=== PATIENT | male | born 1990 | race Caucasian/White ===

== ENCOUNTER 2017-02-08 13:30 | Day surgery (SDC) | payer BC ==
[~2017-02-08] VITALS: Ht 190.5 cm; Wt 126.1 kg
[~2017-02-08 13:30] MED LIST: ESOM40CA PO; METO5TAB58 PO; RANI150T5 PO
[2017-02-08 14:18] VITALS: Ht 190.5 cm; Wt 126.1 kg
[2017-02-08 14:19] VITALS: BP 129/74; PULSE 87; RESP 16
[2017-02-08] MEDS ORDERED: ROCURONIUM 50 MG INJ ONE (15:13)
[2017-02-08] MEDS ORDERED: PROPOFOL 20 ML ONE (15:13)
[2017-02-08] MEDS ORDERED: LIDOCAINE 1% (MDV) 20 ML INJ ONE (15:18)
[2017-02-08] MEDS ORDERED: BACITRACIN/POLYMYXIN 28.35 GM OINT TOP ONE (15:36)
[2017-02-08] MEDS ORDERED: COCAINE 4% 4 ML TOP ONE (15:36)
[2017-02-08] MEDS ORDERED: EPINEPHrine 0.1 MG/ML SYG ONE (15:37)
[2017-02-08] MEDS ORDERED: EPINEPHrine 1 MG/ML 30 ML INJ ONE (15:37)
[2017-02-08] MEDS ORDERED: LIDOCAINE 0.5%/EPI (MDV) 50 ML INJ ONE (15:41)
== END 2017-02-08 18:05 | disposition home or self-care (01) ==
LOC: SDS 13:30
PROVIDERS: ATTEND Otolaryngology
DX: J34.2 Deviated nasal septum (principal); Z53.9 Procedure and treatment not carried out, unspecified reason
CPT/HCPCS: Z7610 ×4; J0171

== ENCOUNTER 2017-02-22 12:35 | Day surgery (SDC) | payer BC ==
[2017-02-21 12:41] VITALS: Ht 190.5 cm; Wt 128.0 kg
[~2017-02-22] VITALS: Ht 190.5 cm; Wt 128.0 kg
[2017-02-22] VITALS (11 sets, daily range): BP systolic 122–146; BP diastolic 70–82; PULSE 72–100; RESP 10–19
[~2017-02-22 12:35] MED LIST changes: +CEFAZOLIN 1 GM/50 ML (PMX) 50 ML IVPB SCH; +DEXAMETHASONE 10 MG/ML 1 ML INJ IV SCH; -ESOM40CA PO; -METO5TAB58 PO; -RANI150T5 PO
[2017-02-22] MEDS ORDERED: DEXAMETHASONE 4 MG/ML 1 ML INJ IV SCH (14:00)
[2017-02-22] MEDS ORDERED: RANI150T9 PO (14:24)
[2017-02-22] MEDS ORDERED: MIDAZOLAM 1 MG/ML 2 ML INJ ONE (15:27)
[2017-02-22] MEDS ORDERED: DIPHENHYDRAMINE 50 MG INJ IV PRN (16:00)
[2017-02-22] MEDS ORDERED: EPHEDrine SULFATE 50 MG/5 ML SYG IV PRN (16:00)
[2017-02-22] MEDS ORDERED: METOCLOPRAMIDE 10 MG INJ IV PRN (16:00)
[2017-02-22] MEDS ORDERED: HYDROmorphONE (0.2 MG/ML) 10ML SYG IV PRN ×2 (16:00)
[2017-02-22] MEDS ORDERED: LABETALOL HCL 20MG INJ IV PRN (16:00)
[2017-02-22] MEDS ORDERED: ONDANSETRON 4 MG INJ IV PRN (16:00)
[2017-02-22] MEDS ORDERED: morphine (1 MG/ML) 10ML SYRINGE IV PRN ×3 (16:00)
[2017-02-22] MEDS ORDERED: OXYCODONE/ACETAMINOPHEN (5/325) TAB PO PRN ×2 (16:00)
[2017-02-22] MEDS ORDERED: MEPERIDINE 25 MG INJ IV PRN (16:00)
[2017-02-22] MEDS ORDERED: GLYCOPYRROLATE 0.4 MG INJ ONE ×3 (17:27→19:47)
[2017-02-22] MEDS ORDERED: PROPOFOL 20 ML ONE (17:27)
[2017-02-22] MEDS ORDERED: LIDOCAINE 2% (SDV) 5 ML INJ ONE (17:27)
[2017-02-22] MEDS ORDERED: SUCCINYLCHOLINE CHLORIDE 100 MG/5 ML SYG IV ONE (17:27)
[2017-02-22] MEDS ORDERED: NEOSTIGMINE 3 MG/3 ML SYRINGE ONE ×2 (17:27→19:47)
[2017-02-22] MEDS ORDERED: MEPERIDINE 100 MG INJ ONE (17:27)
[2017-02-22] MEDS ORDERED: ROCURONIUM 50 MG INJ ONE (17:27)
[2017-02-22] MEDS ORDERED: LIDOCAINE 0.5%/EPI (MDV) 50 ML INJ ONE (18:02)
[2017-02-22] MEDS ORDERED: COCAINE 4% 4 ML TOP ONE (18:03)
[2017-02-22] MEDS ORDERED: LIDOCAINE 2%/EPI (MDV) 20ML INJ ONE (18:03)
[2017-02-22] MEDS ORDERED: BACITRACIN 0.9 GM OINT ONE (18:04)
[2017-02-22] MEDS ORDERED: OXYMETAZOLINE 0.05% 15 ML NAS SPRAY NASAL ONE (18:09)
[2017-02-22] MEDS ORDERED: CEFAZOLIN 1 GM INJ ONE (18:18)
[2017-02-22] MEDS ORDERED: EPINEPHrine 1 MG INJ ONE (19:05)
[2017-02-22] MEDS ORDERED: hydrALAzine 20 MG INJ ONE (19:22)
--- NOTE | 2017-02-22 19:54 | HPN ---
Date/Time of Note Date/Time of Note DATE: 02/22/17 TIME: 19:54 Interval H&P Admission Note Pt. seen H&P reviewed: No system changes MARY MOORE MD February 22, 2017 19:54
--- NOTE | 2017-02-22 19:59 | OPR ---
Date/Time of Note Date/Time of Note DATE: 02/22/17 TIME: 19:55 Operative Report Procedure Date: February 22, 2017 Preoperative Diagnosis Deviated nasal septum, chronic sinusitis, nasal congestion. Postoperative Diagnosis Same Operation Performed Image guided bilateral endoscopic frontal sinusotimies, maxillary antrostomies, total ethmoidectomies, sphenoid sinusotomies. Septoplasty. Submucous resection of inferior turbinates. Surgeon: MARY MOORE MD Anesthesia: general Estimated Blood Loss: 10 - 50 ml's Complications: None Pt Condition Post Procedure: stable Disposition: PACU Indications Nasal congestion, chronic sinusitis. Operative\Procedure Findings Symmetric nasal mucosal edema. DNS right caudal, left to MM posteriorly. Procedure Description Description of procedure:The patient was identified in the holding area. We had a discussion to confirm understanding of all indications risks benefits alternatives and postoperative care associated with the operation. The patient signed informed consent was taken to the operating room. The patient was laid supine on the operating room table and anesthesia was provided in the following manner: GETA. The face was draped in sterile fashion and the nose was packed with 4% cocaine pledgets. The uncinate process was infiltrated with 0.5 cc of 1 % lidocaine with epinephrine on each side. Navigation with G-mode system was initiated and used during the entire case. 0 endoscopy was performed of all nasal turbinates and meati. This revealed the findings described above. The procedure began on the right side under endoscopic guidance. The sickle knife and upbiting [place]akesley were used to resect the uncinate process in an inferior to superior fashion until the area of the frontal sinus outflow tract was reached. Frontal sinusotomy: A curved curet was used to remove the bony elements of the Ager Nasi cell. Next, with a 45 camera, the frontal sinus outflow tract was explored and any abnormal mucosa was resected. Care was taken not to cause too much mucosal disruption in this area in order to avoid scarring and stenosis. The tract was dilated with a frontal sinus balloon. Maxillary antrostomy: Once the frontal sinus was addressed, the maxillary sinus ostium was identified and entered with the curved probe. It was widened anteriorly and inferiorly to complete the maxillary antrostomy. No intrasinus mass or polyp was seen. Ethmoidectomy: Next, the zero degree endoscope was again used to visualize the middle meatus. Anterior and posterior ethmoid air cells were resected in an inferior to superior fashion sparing the lamina papyracea and the skull base. All excess mucosa and polypoid tissue were removed with an upbiting forceps. Sphenoid sinusotomy: The anterior face of the sphenoid sinus was identified with the zero degree endoscopy and entered inferiorly and medially with a seeker. The punch was used to widen this inferomedially to complete the sphenoid sinusotomy. At this point, all bony fragments were removed and a large Nasopore was placed into the ethmoidectomy defect. The contralateral side was at this point addressed in the same sequence dictated above. Frontal sinusotomy, total ethmoidectomy, sphenoid sinusotomy and maxillary antrostomy proceeded in the exact same sequences as the contralateral side. At completion, this side was also packed with a Nasopore pack and bilateral hemostasis was ensured with a final nasal endoscopy. A left sided H[place]ernia incision was made and submucoperichondreal flaps were raised. The bony cartilaginous junction of the septum was identified and entered. A deviated segments of bone and cartilage were isolated. A double- action scissor was used to transect the bony deviated segment of the skull base after which a Augustine forcep was used to resect deviated segment of bone and cartilage. Care was taken to avoid excess cartilaginous resection. The flaps were returned to normal position and anterior rhinoscopy reveals midline septum. At this point the right inferior turbinate was medialized with a [place] elevator. The Coblation wand on a setting of 6 was used to enter the turbinate in the inferior medial submucosal compartment. 10 seconds of Coblation were performed at the 3rd 2nd and 1st beck after which the turbinate was crushed laterally into the lateral nasal wall with a Kraft elevator. The contralateral turbinate was addressed in similar fashion to complete the bilateral submucous resection and lateral fracturing of the inferior turbinates. 40 fast-absorbing gut whip stitch was performed. A Merocel pack was placed on each side. The patient was awakened, extubated and taken to the PACU in stable condition. Complications: None. MARY MOORE MD February 22, 2017 19:59
[2017-02-22] MEDS ORDERED: HYDROCODONE/APAP (5/325) TAB PO PRN (20:00)
[2017-02-22] MEDS: HYDROmorphONE (0.2 MG/ML) 10ML SYG IV PRN ×5 (20:14→20:40)
== END 2017-02-22 21:33 | disposition home or self-care (01) ==
LOC: SDS 12:35
PROVIDERS: ATTEND Otolaryngology
DX: J34.2 Deviated nasal septum (principal); J32.9 Chronic sinusitis, unspecified; E66.9 Obesity, unspecified; Z68.35 Body mass index [BMI] 35.0-35.9, adult
CPT/HCPCS: 31255; 31256; 31276; J0171; J0360; J0690; J1170; J2175; J2250; J2405; J2710; J7999; Z7512; Z7610

== ENCOUNTER 2017-02-27 22:53 | Emergency (ER) | payer BC ==
[~2017-02-27] VITALS: Ht 190.5 cm; Wt 125.0 kg
[~2017-02-27 22:53] MED LIST changes: -CEFAZOLIN 1 GM/50 ML (PMX) 50 ML IVPB SCH; -DEXAMETHASONE 10 MG/ML 1 ML INJ IV SCH; +RANI150T9 PO
[2017-02-27 22:57] VITALS: Ht 190.5 cm; Wt 125.0 kg
[2017-02-28] MEDS ORDERED: HYDR-902 PO
[2017-02-28] MEDS ORDERED: HYDROCODONE/APAP (10/325) TAB PO ONE
--- NOTE | 2017-02-28 00:34 | ERD ---
ER Documentation Chief Complaint Date/Time DATE: 02/28/17 TIME: 00:30 Chief Complaint had septoplasty on tuesday, is having r side face pain, ran out of medicait HPI 19-year-old male presents to emergency department for complaint of right facial pain after septoplasty done 5 days ago, patient was taking Tylenol with Codeine which Helped, but Ran Out Of the Medication. Patient Described Pain As Throbbing Pain, 6/10 Scale, Denies Any Fever or Chills. Patient States It's Worse upon Opening and Closing the Mouth at Times. Patient Has an Appointment with Surgeon in 3 Days. Patient denies any new symptoms. Patient denies any fever or chills. ROS All systems reviewed and are negative except as per history of present illness. Medications Home Meds Active Scripts Hydrocodone/Acetaminophen (Tracy 10-325 Tablet) 1 Each Tablet, 1 TAB PO Q6H Y for SEVERE PAIN LEVEL 7-10, #20 TAB Prov:SUKUMAR MAO [employer] 02/28/17 Reported Medications Ranitidine Hcl* (Zantac*) 150 Mg Tablet, 150 MG PO BID, #60 TAB 02/22/17 Allergies Allergies: Coded Allergies: No Known Allergy (Unverified , 02/22/17) PMhx/Soc History of Surgery: Yes (EGD PROCEDURE) Anesthesia Reaction: No Hx Neurological Disorder: No Hx Respiratory Disorders: Yes (ASTHMA, NASAL POLYP, DEVIATED SEPTUM) Hx Cardiac Disorders: No Hx Psychiatric Problems: No Hx Miscellaneous Medical Probl: No Hx Alcohol Use: Yes (OCCASIONAL) Hx Substance Use: No Hx Tobacco Use: No FmHx Family History: No coronary disease, No diabetes, No other Physical Exam Vitals Vital Signs Date Time Temp Pulse Resp B/P Pulse Ox O2 Delivery O2 Flow Rate FiO2 02/27/17 22:57 98.4 89 18 174/84 99 Physical Exam GENERAL: The patient is well developed and appropriate for usual state of health, in no apparent distress.. HEENT: Atraumatic. Ears: Normal tympanic membrane, no erythema or bulging. No ear canal swelling. No ear discharge. Nose: normal nasal turbinates, no erythema or swelling. Normal nasal discharge. No purulent discharge from the nose. No sinus tenderness noted.. Throat: oropharynx clear. No tonsillar swelling or tonsillar exudates. No lymphadenopathy. CHEST: Clear to auscultation bilaterally. There are no rales, wheezes or rhonchi. HEART: Regular rate and rhythm. No murmurs, clicks, rubs or gallops. No S3 or S4. ABDOMEN: Soft, nontender and nondistended. Good bowel sounds. No rebound or guarding. No gross peritonitis. No gross organomegaly or masses. No Clifford sign or McBurney point tenderness. BACK: No midline or flank tenderness. EXTREMITIES: Equal pulses bilaterally. There is no peripheral clubbing, cyanosis or edema. No focal swelling or erythema. Full range of motion. Grossly neurovascularly intact. NEURO: Alert and oriented. Cranial nerves 2-12 intact. Motor strength in all 4 extremities with 5/5 strength. Sensation grossly intact. Normal speech and gait. SKIN: There is no apparent rash or petechia. The skin is warm and dry. HEMATOLOGIC AND LYMPHATIC: There is no evidence of excessive bruising or lymphedema. No gross cervical, axillary, or inguinal lymphadenopathy. Results 24 hrs Current Medications Medications (Trade) Dose Ordered Sig/Norma Route PRN Reason Start Time Stop Time Status Last Admin Dose Admin Acetaminophen/ Hydrocodone Bitart (Tracy (10/325)) 1 tab ONCE ONCE PO 02/28/17 00:00 02/28/17 00:01 DC 02/27/17 23:57 Patient was given medication for pain here in emergency department, after treatment, patient verbalized feeling much better. Patient's pain is improved. Procedures/MDM Medical decision making: Patient's pain most likely from postoperative pain. No symptoms of any new infection. No facial swelling. No fever. Patient appears erythematous and have asked stable. No symptoms of meningitis been no symptoms of sepsis. Patient has an appointment with surgeon in 3 days, is advised to follow-up with his doctor. Patient is advised to return to emergency department for high fever, purulent discharge from the nose, neck pain, neck rigidity, or any other worsening symptoms. Otherwise, patient is advised to follow-up with surgeon in 3 days as per appointment. Disposition: Home. Stable Departure Diagnosis: Primary Impression: Postoperative pain Condition: Stable Patient Instructions: Post Op Wound Check, Pain SUKUMAR MAO NP February 28, 2017 00:34
== END 2017-02-28 00:14 | disposition home or self-care (01) ==
LOC: FTE 22:53
DX: G89.18 Other acute postprocedural pain (principal); J45.909 Unspecified asthma, uncomplicated
CPT/HCPCS: 99283; Z7610